=== PATIENT | male | born 1960 | race African-American/Black ===

== ENCOUNTER → 2020-01-08 | Outpatient (CLI) | payer BC ==
--- NOTE | 2020-01-21 12:03 | EEG ---
[facility] [place] [address] ELECTROENCEPHALOGRAM Name: KARLI PLASCENCIA Room #: REG Ary Dora.#: [id number] Admission: 01/08/20 Attend Phys: Ysabel Lares DO Discharge: Date of : 56 Report #: [id number] THIS REPORT FOR: //name// CC: Ysabel Lares DATE OF SERVICE: 01/08/2020 This patient is being evaluated for seizure. EEG was done by placing the electrode by standard 10-20 system of electrode placement. Both referential and sequential montages were done for recording. Background activity in this patient's EEG is about 11 Hz and 30 microvolt. It is a symmetrical activity. Photic stimulation is unremarkable. The patient became drowsy that is associated with bilateral slowing. Throughout the record, no active epileptiform activity was noticed. IMPRESSION: This patient's EEG is within normal limits. No active epileptiform activity was noticed during this record. It might be mentioned that EEG can be normal in a patient with a seizure disorder. <ELECTRONICALLY SIGNED> By: Norman Jackson MD 01/21/20 1203 [id number] Norman Jackson MD /nt
== END ==
LOC: NEURO 09:53
PROVIDERS: ATTEND Psychiatry & Neurology Neurology
DX: G40.009 Localization-related (focal) (partial) idiopathic epilepsy and epileptic syndromes with seizures of localized onset, not intractable, without status epilepticus (principal)